=== PATIENT | female | born 1980 | race Caucasian/White ===

== ENCOUNTER 2017-10-31 03:15 | Emergency (ER) | payer OTHER ==
[2017-10-31 03:25] VITALS: BP 108/53; PULSE 108; TEMP 100.2; BMI 23.1
--- NOTE | 2017-10-31 03:33 | PDOC ---
History of Present Illness - General Chief Complaint: Pain, Acute Stated Complaint: LOWER BACK PAIN, FEVER YESTERDAY Time Seen by Provider: 10/31/17 03:25 - History of Present Illness Initial Comments: This 37-year-old woman , currently attempting to become , presents with 2 day history of fever, headache and lower back pain radiating to bilateral lower abd quadrants. Patient states that she is currently ovulating and her PMD suggested she come in to the emergency room to rule out ruptured ovarian cyst. Patient states that her lower back/lower abdominal pain has decreased to a 2/10 severity. Patient has no other symptoms and denies sore throat/cough/nausea/vomiting/diarrhea. She has not had any rash or known insect bites. She has not had any recent travel. 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 No one else ill at home. Past History - Past Medical History Allergies/Adverse Reactions: Allergies Allergy/AdvReac Type Severity Reaction Status Date / Time adhesive Allergy Verified 08/09/15 18:41 povidone-iodine Allergy Verified 10/31/17 03:21 [From Betadine] soap [From Betadine] Allergy Verified 10/31/17 03:21 Home Medications: Ambulatory Orders NK [No Known Home Medication] 10/31/17 COPD: No Other medical history: ANXIETY - Reproductive History (#): 2 Para: 0 Cervical CA: No Dysfunctional Uterine Bleeding: No Ectopic : No Endometrial CA: No Polycystic Ovaries: No Therapeutic (s) & number: No Tubal Ligation: No Spontaneous : 1 - Suicide/Smoking/Psychosocial Hx Smoking History: Never smoked Have you smoked in the past 12 months: No Information on smoking cessation initiated: No Hx Alcohol Use: No Drug/Substance Use Hx: No Substance Use Type: None Review of Systems - Review of Systems Able to Perform ROS?: Yes Comments:: 12 point review of systems is negative except for what is noted in the history of present illness *Physical Exam - Vital Signs Last Vital Signs Temp Pulse Resp BP Pulse Ox 100.2 F H 108 H 16 108/53 96 10/31/17 03:21 10/31/17 03:21 10/31/17 03:21 10/31/17 03:21 10/31/17 03:21 - Physical Exam Comments: GENERAL: Adult female, alert and oriented 3, in no acute distress HEAD: Normal with no signs of trauma. EYES: PERRLA, EOMI, sclera anicteric, conjunctiva clear. ENT: Ears normal, nares patent, oropharynx clear without exudates. Dry mucous membranes. NECK: Normal range of motion, supple without lymphadenopathy, JVD, or masses. LUNGS: Breath sounds equal, clear to auscultation bilaterally. No wheezes, and no crackles. HEART:Regular rate and rhythm, normal S1 and S2 without murmur, rub or gallop. ABDOMEN:.normal bowel sounds No guarding,tenderness or rebound.No masses No distention. EXTREMITIES: Normal range of motion, no edema. No clubbing or cyanosis. No erythema, or tenderness. NEUROLOGICAL: Cranial nerves II through XII grossly intact. Normal speech. No focal neurological deficits. MUSCULOSKELETAL: Back non-tender to palpation, no CVA tenderness SKIN: Warm, Dry, normal turgor, no rashes or lesions noted. Progress Note - Progress Note Progress Note: Although the patient has a history of fever/headache the last 2 days, she is most concerned with her lower abdominal/lower back pain. Although she has no history of ovarian cysts, she does have family history of ovarian carcinoma. She is also concerned that ruptured ovarian cyst could have infectious complications. Exam as noted. Patient given a liter normal saline IV along with Toradol 30 mg IV for her ongoing headache and dehydration. *DC/Admit/Observation/Transfer Diagnosis at time of Disposition: Viral syndrome - Discharge Dispostion Disposition: HOME Condition at time of disposition: Stable - Referrals - Patient Instructions Printed Discharge Instructions: DI for Viral Syndrome Additional Instructions: rest, drink plenty of fluids ibuprofen/naproxen/acetaminophen as needed for fever/headache return if you have vomiting, persistent high fever or worsening abdominal/ pelvic pain - Post Discharge Activity
[2017-10-31] MEDS ORDERED: KETOROLAC TROMETHAMINE 30 MG/1 ML VIAL IVPUSH ONE (03:49)
[2017-10-31] MEDS ORDERED: SODIUM CHLORIDE 1,000 ML IV STA (03:49)
[2017-10-31] MEDS ORDERED: KETOROLAC TROMETHAMINE 30 MG/1 ML VIAL ONE (03:54)
== END 2017-10-31 05:07 | disposition home or self-care (01) ==
LOC: FER 03:15
PROC: 3E0333Z Introduction of Anti-inflammatory into Peripheral Vein, Percutaneous Approach (ICD-10-PCS; principal; 2017-10-31)
PROC: 3E0337Z Introduction of Electrolytic and Water Balance Substance into Peripheral Vein, Percutaneous Approach (ICD-10-PCS; 2017-10-31)
DX: B34.9 Viral infection, unspecified (principal)
CPT/HCPCS: 99281-25; J7030